=== PATIENT | female | born 1945 | race Caucasian/White ===

== ENCOUNTER 2022-05-11 19:08 | Inpatient (IN) | payer OTHER, MEDICAID ==
[~2022-05-11] VITALS: Ht 170.2 cm; Wt 112.9 kg
[2022-05-11 19:13] VITALS: BP_SYST 115; BP_SYST 170
[2022-05-11] MEDS ORDERED: NACL 0.9% 1,000 ML IV ONE ×2 (19:30→20:15)
[2022-05-11 19:50] LABS: BASOPHILS % (AUTO) 0.5 % (0.0-2.0); HEMATOCRIT 48.9 % (36-48); HEMOGLOBIN 15.9 g/dL (12.0-16.0); LYMPHOCYTES # (AUTO) 1.3 K/uL (1.0-5.5); LYMPHOCYTES % (AUTO) 19.5 % (20.5-51.5); MEAN CORPUSCULAR HEMOGLOBIN 29 pg (27-31); MEAN CORPUSCULAR HGB CONC 32 % (32-36); MEAN CORPUSCULAR VOLUME 91 fL (79.0-98.0); MONOCYTES # (AUTO) 1.4 K/uL (0.0-1.0); MONOCYTES % (AUTO) 21.7 % (1.7-9.3); NEUTROPHILS # (AUTO) 3.8 K/uL (1.8-7.7); NEUTROPHILS % (AUTO) 58.3 % (40.0-70.0); PLATELET COUNT (AUTO) 295 K/uL (130-430); RED CELL DISTRIBUTION WIDTH 16.4 % (9.0-15.0); WHITE BLOOD COUNT (AUTO) 6.4 K/uL (4.8-10.8)
[2022-05-11 20:12] LABS: ALANINE AMINOTRANSFERASE 13 U/L (12-78); ALBUMIN 2.7 g/dL (3.4-4.8); ANION GAP 29 (5-15); ASPARTATE AMINOTRANSFERASE 10 U/L (10-37); CALCIUM 9.1 mg/dL (8.4-11.0); CHLORIDE 88 mmol/L (98-107); CREATININE 1.56 mg/dL (0.55-1.30); TOTAL BILIRUBIN 0.6 mg/dL (0.0-1.0); UREA NITROGEN, BLOOD 10 mg/dL (8-21)
[2022-05-11 20:13] LABS: GLUCOSE 512 mg/dL (70-99)
[2022-05-11] MEDS ORDERED: INSULIN REGULAR, HUMAN 10 UNITS/0.1 ML, 3 ML VIAL IVP ONE (20:15)
[2022-05-11] MEDS ORDERED: INSULIN REGULAR, HUMAN 100 UNITS in NS 99 ML IV ONE ×4 (20:30→21:30)
[2022-05-11] MEDS ORDERED: PIPERACILLIN/TAZO 3.375 GM in NS 50 ML IV ONE (21:00)
[2022-05-11] MEDS ORDERED: SODIUM BICARBONATE 8.4% JECT 50 MEQ/50 ML SYRINGE IVP ONE (21:00)
[2022-05-11] MEDS ORDERED: PIPERACILLIN/TAZOBACTAM 3.375 GM/VIAL (ZOSYN) IV ONE (21:03)
[2022-05-11] MEDS ORDERED: NACL 0.9% 2,000 ML IV ONE (21:30)
[2022-05-11] MEDS ORDERED: SODIUM BICARBONATE 8.4% VIAL 50 MEQ/50 ML VIAL ONE (21:32)
[2022-05-11] MEDS ORDERED: INSULIN REGULAR, HUMAN 10 UNITS/0.1 ML, 3 ML VIAL ONE (22:12)
[2022-05-11] MEDS ORDERED: cefTRIAXone 1 GM in D5W 50 ML IV SCH (22:45)
[2022-05-11] MEDS ORDERED: FLUCONAZOLE 200 mg/ NS 100 ML IV SCH (23:00)
[2022-05-11] MEDS ORDERED: ONDANSETRON HCL 4 MG/2 ML VIAL IVP PRN (23:15)
[2022-05-12] VITALS (21 sets, daily range): BP systolic 105–190
[2022-05-12] MEDS ORDERED: CLON0.5T4 PO (00:07)
[2022-05-12] MEDS ORDERED: METF-379 PO (00:07)
[2022-05-12] MEDS ORDERED: SIMV-345 PO (00:07)
[2022-05-12] MEDS ORDERED: LEVO100T9 PO (00:07)
[2022-05-12 00:17] LABS: BILIRUBIN,URINE 2+ (NEGATIVE); BLOOD, URINE 2+ (NEGATIVE); CLARITY/URINE CLEAR (CLEAR); COLOR,URINE YELLOW (YELLOW); GLUCOSE,URINE 2+ (NEGATIVE); KETONES,URINE 3+ (NEGATIVE); LEUKOCYTE ESTERASE ,URINE TRACE (NEGATIVE); NITRITE, URINE NEGATIVE (NEGATIVE); PH,URINE 5.5 (5.0-8.0); PROTEIN URINE 2+ (NEGATIVE)
[2022-05-12] MEDS ORDERED: cefTRIAXone 1 GM VIAL ONE (00:34)
[2022-05-12] MEDS: NACL 0.9% 1,000 ML IV SCH ×4 (00:38→19:29)
[2022-05-12 00:43] LABS: BACTERIA,URINE FEW /HPF (None Seen); MUCUS,URINE None Seen /LPF (None Seen)
[2022-05-12 00:48] LABS: URINE SULFO SALICYLIC ACID TRACE (NEGATIVE)
[2022-05-12] MEDS ORDERED: clonazePAM 0.5 MG TABLET PO ONE (02:15)
[2022-05-12 07:30] LABS: BASOPHILS % (AUTO) 0.2 % (0.0-2.0); EOSINOPHILS % (AUTO) 0.2 % (0.0-4.0); HEMATOCRIT 46.3 % (36-48); HEMOGLOBIN 14.9 g/dL (12.0-16.0); LYMPHOCYTES # (AUTO) 1.5 K/uL (1.0-5.5); LYMPHOCYTES % (AUTO) 29.6 % (20.5-51.5); MEAN CORPUSCULAR HEMOGLOBIN 29 pg (27-31); MEAN CORPUSCULAR HGB CONC 32 % (32-36); MEAN CORPUSCULAR VOLUME 90 fL (79.0-98.0); MONOCYTES # (AUTO) 1.1 K/uL (0.0-1.0); MONOCYTES % (AUTO) 21.1 % (1.7-9.3); NEUTROPHILS # (AUTO) 2.5 K/uL (1.8-7.7); NEUTROPHILS % (AUTO) 48.9 % (40.0-70.0); PLATELET COUNT (AUTO) 123 K/uL (130-430); RED BLOOD CELL COUNT(AUTO) 5.18 MIL/uL (4.2-6.2); RED CELL DISTRIBUTION WIDTH 16.5 % (9.0-15.0); WHITE BLOOD COUNT (AUTO) 5.1 K/uL (4.8-10.8)
[2022-05-12 07:43] LABS: ALANINE AMINOTRANSFERASE 10 U/L (12-78); ALBUMIN 2.1 g/dL (3.4-4.8); ANION GAP 21 (5-15); ASPARTATE AMINOTRANSFERASE 14 U/L (10-37); CALCIUM 8.2 mg/dL (8.4-11.0); CHLORIDE 98 mmol/L (98-107); CREATININE 1.09 mg/dL (0.55-1.30); GLUCOSE 295 mg/dL (70-99); PHOSPHORUS 2.4 mg/dL (2.7-4.5); TOTAL BILIRUBIN 0.4 mg/dL (0.0-1.0); UREA NITROGEN, BLOOD 11 mg/dL (8-21)
[2022-05-12 08:08] LABS: ACETONE, SERUM SMALL (NEGATIVE)
[2022-05-12] MEDS: ACETAMINOPHEN 325 MG TABLET PO PRN (08:55)
[2022-05-12 09:13] LABS: INR 1.2 (0.8-1.2); PROTHROMBIN TIME 12.2 SECS (9.5-12.5)
[2022-05-12] MEDS ORDERED: CLOTRIMAZOLE 1% TOPICAL CREAM 15 GM TP ONE (10:30)
[2022-05-12 10:32] LABS: BILIRUBIN,URINE 2+ (NEGATIVE); BLOOD, URINE 1+ (NEGATIVE); COLOR,URINE YELLOW (YELLOW); GLUCOSE,URINE 2+ (NEGATIVE); KETONES,URINE 3+ (NEGATIVE); LEUKOCYTE ESTERASE ,URINE NEGATIVE (NEGATIVE); NITRITE, URINE NEGATIVE (NEGATIVE); PROTEIN URINE 2+ (NEGATIVE)
[2022-05-12 10:33] LABS: CLARITY/URINE SLIGHTLY HAZY (CLEAR)
[2022-05-12 10:41] LABS: BACTERIA,URINE FEW /HPF (None Seen); WBC,URINE 0-3 /HPF (0-3)
[2022-05-12] MEDS: CLOTRIMAZOLE 1% TOPICAL CREAM 15 GM TP SCH (12:59)
[2022-05-12] MEDS ORDERED: LOSARTAN POTASSIUM 25 MG TABLET PO ONE (15:45)
[2022-05-12 16:13] LABS: ANION GAP 13 (5-15); CALCIUM 8.2 mg/dL (8.4-11.0); CHLORIDE 100 mmol/L (98-107); CREATININE 1.12 mg/dL (0.55-1.30); GLUCOSE 355 mg/dL (70-99); UREA NITROGEN, BLOOD 14 mg/dL (8-21)
[2022-05-12] MEDS: AMPICILLIN SODIUM/SULBACTAM NA 3 GM in NS 100 ML IV SCH ×2 (18:31→23:58)
[2022-05-13] VITALS (19 sets, daily range): BP systolic 97–166
[2022-05-13] MEDS: NACL 0.9% 1,000 ML IV SCH ×2 (01:21→05:33)
[2022-05-13] MEDS: INSULIN REGULAR, HUMAN 100 UNITS in NS 99 ML IV SCH ×4 (03:13→07:51)
[2022-05-13] MEDS: AMPICILLIN SODIUM/SULBACTAM NA 3 GM in NS 100 ML IV SCH ×4 (05:33→23:58)
[2022-05-13 06:51] LABS: BASOPHILS % (AUTO) 0.3 % (0.0-2.0); EOSINOPHILS % (AUTO) 0.6 % (0.0-4.0); HEMATOCRIT 40.5 % (36-48); HEMOGLOBIN 13.5 g/dL (12.0-16.0); LYMPHOCYTES # (AUTO) 1.1 K/uL (1.0-5.5); LYMPHOCYTES % (AUTO) 21.6 % (20.5-51.5); MEAN CORPUSCULAR HEMOGLOBIN 29 pg (27-31); MEAN CORPUSCULAR HGB CONC 33 % (32-36); MEAN CORPUSCULAR VOLUME 88 fL (79.0-98.0); MONOCYTES # (AUTO) 0.9 K/uL (0.0-1.0); MONOCYTES % (AUTO) 18.1 % (1.7-9.3); NEUTROPHILS # (AUTO) 2.9 K/uL (1.8-7.7); NEUTROPHILS % (AUTO) 59.4 % (40.0-70.0); PLATELET COUNT (AUTO) 212 K/uL (130-430); RED BLOOD CELL COUNT(AUTO) 4.63 MIL/uL (4.2-6.2); RED CELL DISTRIBUTION WIDTH 16.4 % (9.0-15.0); WHITE BLOOD COUNT (AUTO) 4.9 K/uL (4.8-10.8)
[2022-05-13 07:53] LABS: ALANINE AMINOTRANSFERASE 12 U/L (12-78); ALBUMIN 1.9 g/dL (3.4-4.8); ASPARTATE AMINOTRANSFERASE 13 U/L (10-37); CREATININE 1.01 mg/dL (0.55-1.30); GLUCOSE 199 mg/dL (70-99); THYROID STIMULATING HORMONE 10.18 uIu/mL (0.34-4.82); TOTAL BILIRUBIN 0.3 mg/dL (0.0-1.0); UREA NITROGEN, BLOOD 11 mg/dL (8-21)
[2022-05-13] MEDS ORDERED: LOSARTAN POTASSIUM 25 MG TABLET PO SCH (09:00)
[2022-05-13 09:01] LABS: ANION GAP 9 (5-15); CHLORIDE 104 mmol/L (98-107)
[2022-05-13] MEDS: CLOTRIMAZOLE 1% TOPICAL CREAM 15 GM TP SCH ×2 (09:06→22:00)
[2022-05-13] MEDS ORDERED: POTASSIUM CHLORIDE 20 MEQ TAB.PRT.SR PO ONE (09:45)
[2022-05-13] MEDS ORDERED: NACL 0.9% 1,000 ML IV SCH (09:45)
[2022-05-13] MEDS ORDERED: INSULIN NPH 100 UNITS/ML 10 ML VIAL SUBCUT ONE (09:45)
[2022-05-13] MEDS ORDERED: PANTOPRAZOLE SODIUM 40 MG TAB PO ONE (10:00)
[2022-05-13] MEDS ORDERED: MAG-AL HYDROX/SIMETH 30 ML UDC PO ONE (10:00)
[2022-05-13] MEDS: ACETAMINOPHEN 325 MG TABLET PO PRN (11:06)
[2022-05-13] MEDS: INSULIN REGULAR, HUMAN 100 UNITS/ML, 3 ML VIAL (humuLIN R) SUBCUT PRN ×3 (11:11→18:13)
[2022-05-13] MEDS: MAG-AL HYDROX/SIMETH 30 ML UDC PO SCH ×3 (12:41→21:51)
[2022-05-13] MEDS ORDERED: MUPIROCIN 1 GM OIN.PF.APP NS SCH (15:30)
[2022-05-13] MEDS ORDERED: MUPIROCIN 2% TOPICAL OINTMENT 22 GM NS ONE (16:00)
[2022-05-13] MEDS ORDERED: cloNIDine HCL 0.1 MG TABLET PO PRN (18:30)
[2022-05-13] MEDS: LR 1,000 ML IV SCH (20:42)
[2022-05-13] MEDS ORDERED: INSULIN ASPART 100 UNITS/ML, 10 ML VIAL (NovoLOG) SUBCUT PRN (20:45)
[2022-05-13] MEDS: LOSARTAN POTASSIUM 25 MG TABLET PO SCH (21:58)
[2022-05-13] MEDS: ENOXAPARIN SODIUM 40 MG/0.4 ML SYRINGE SUBCUT SCH (21:58)
[2022-05-13] MEDS: MUPIROCIN 2% TOPICAL OINTMENT 22 GM NS SCH (22:00)
[2022-05-13] MEDS: POTASSIUM CHLORIDE 20 MEQ TAB.PRT.SR PO SCH (22:01)
[2022-05-13] MEDS: PANTOPRAZOLE SODIUM 40 MG TAB PO SCH (22:01)
[2022-05-13] MEDS: INSULIN GLARGINE 100 UNITS/ML, 10 ML VIAL SUBCUT SCH (22:09)
[2022-05-13] MEDS: INSULIN LISPRO SLIDING SCALE 100 UNITS/ML, 3 ML VIAL (humaLOG) SUBCUT PRN (22:40)
[2022-05-14 02:33] VITALS: BP_SYST 161
[2022-05-14] MEDS: INSULIN LISPRO SLIDING SCALE 100 UNITS/ML, 3 ML VIAL (humaLOG) SUBCUT PRN ×5 (03:57→21:55)
[2022-05-14] MEDS: LEVOTHYROXINE SODIUM 0.1 MG TABLET PO SCH (06:19)
[2022-05-14] MEDS: AMPICILLIN SODIUM/SULBACTAM NA 3 GM in NS 100 ML IV SCH ×2 (07:04→12:47)
[2022-05-14 07:33] LABS: BASOPHILS % (AUTO) 0.5 % (0.0-2.0); EOSINOPHILS # (AUTO) 0.1 K/uL (0.0-0.4); EOSINOPHILS % (AUTO) 1.3 % (0.0-4.0); HEMATOCRIT 40.8 % (36-48); HEMOGLOBIN 13.5 g/dL (12.0-16.0); LYMPHOCYTES # (AUTO) 1.3 K/uL (1.0-5.5); LYMPHOCYTES % (AUTO) 26.8 % (20.5-51.5); MEAN CORPUSCULAR HEMOGLOBIN 29 pg (27-31); MEAN CORPUSCULAR HGB CONC 33 % (32-36); MEAN CORPUSCULAR VOLUME 87 fL (79.0-98.0); MONOCYTES # (AUTO) 0.7 K/uL (0.0-1.0); MONOCYTES % (AUTO) 14.3 % (1.7-9.3); NEUTROPHILS # (AUTO) 2.9 K/uL (1.8-7.7); NEUTROPHILS % (AUTO) 57.1 % (40.0-70.0); PLATELET COUNT (AUTO) 193 K/uL (130-430); RED BLOOD CELL COUNT(AUTO) 4.68 MIL/uL (4.2-6.2); RED CELL DISTRIBUTION WIDTH 16.4 % (9.0-15.0)
[2022-05-14 08:00] VITALS: BP_SYST 147
[2022-05-14 08:16] LABS: ANION GAP 7 (5-15); CALCIUM 8.4 mg/dL (8.4-11.0); CHLORIDE 104 mmol/L (98-107); CREATININE 0.74 mg/dL (0.55-1.30); FREE T4 (FREE THYROXINE) 0.3 ng/dL (0.6-1.6); GLUCOSE 198 mg/dL (70-99); UREA NITROGEN, BLOOD 11 mg/dL (8-21)
[2022-05-14] MEDS: SIMVASTATIN 40 MG TABLET PO SCH (09:59)
[2022-05-14] MEDS: MAG-AL HYDROX/SIMETH 30 ML UDC PO SCH ×4 (09:59→21:28)
[2022-05-14] MEDS: PANTOPRAZOLE SODIUM 40 MG TAB PO SCH ×2 (10:00→21:28)
[2022-05-14] MEDS: POTASSIUM CHLORIDE 20 MEQ TAB.PRT.SR PO SCH ×2 (10:00→21:28)
[2022-05-14] MEDS: LOSARTAN POTASSIUM 25 MG TABLET PO SCH ×2 (10:01→21:27)
[2022-05-14] MEDS: MUPIROCIN 2% TOPICAL OINTMENT 22 GM NS SCH ×3 (10:05→21:27)
[2022-05-14] MEDS: CLOTRIMAZOLE 1% TOPICAL CREAM 15 GM TP SCH ×2 (10:05→21:28)
[2022-05-14] MEDS: INSULIN GLARGINE 100 UNITS/ML, 10 ML VIAL SUBCUT SCH ×2 (10:23→21:53)
[2022-05-14 14:06] LABS: T4 (THYROXINE) 1.6 ug/dL (4.5-12.0)
[2022-05-14] MEDS: LR 1,000 ML IV SCH ×2 (14:45→16:45)
[2022-05-14] MEDS ORDERED: VANCOMYCIN HCL 1,500 MG in NS 250 ML IV SCH (16:00)
[2022-05-14 16:45] VITALS: BP_SYST 151
[2022-05-14] MEDS ORDERED: FLUCONAZOLE 100 MG TABLET (DIFLUCAN) PO ONE (17:45)
[2022-05-14 21:07] VITALS: BP_SYST 145
[2022-05-14] MEDS: ENOXAPARIN SODIUM 40 MG/0.4 ML SYRINGE SUBCUT SCH (21:28)
[2022-05-15 00:36] VITALS: BP_SYST 147
[2022-05-15] MEDS: LR 1,000 ML IV SCH ×2 (01:46→10:24)
[2022-05-15 05:27] VITALS: BP_SYST 142
[2022-05-15] MEDS: LEVOTHYROXINE SODIUM 0.1 MG TABLET PO SCH (06:11)
[2022-05-15 07:23] LABS: BASOPHILS % (AUTO) 0.4 % (0.0-2.0); EOSINOPHILS # (AUTO) 0.1 K/uL (0.0-0.4); EOSINOPHILS % (AUTO) 1.7 % (0.0-4.0); HEMATOCRIT 42.3 % (36-48); HEMOGLOBIN 14.2 g/dL (12.0-16.0); LYMPHOCYTES # (AUTO) 1.5 K/uL (1.0-5.5); LYMPHOCYTES % (AUTO) 26.4 % (20.5-51.5); MEAN CORPUSCULAR HEMOGLOBIN 29 pg (27-31); MEAN CORPUSCULAR HGB CONC 34 % (32-36); MEAN CORPUSCULAR VOLUME 86 fL (79.0-98.0); MONOCYTES # (AUTO) 0.7 K/uL (0.0-1.0); MONOCYTES % (AUTO) 13.2 % (1.7-9.3); NEUTROPHILS # (AUTO) 3.2 K/uL (1.8-7.7); NEUTROPHILS % (AUTO) 58.3 % (40.0-70.0); PLATELET COUNT (AUTO) 180 K/uL (130-430); RED CELL DISTRIBUTION WIDTH 15.7 % (9.0-15.0); WHITE BLOOD COUNT (AUTO) 5.5 K/uL (4.8-10.8)
[2022-05-15 07:56] LABS: ANION GAP 3 (5-15); CALCIUM 8.2 mg/dL (8.4-11.0); CHLORIDE 99 mmol/L (98-107); GLUCOSE 225 mg/dL (70-99); UREA NITROGEN, BLOOD 7 mg/dL (8-21)
[2022-05-15 08:00] VITALS: BP_SYST 163
[2022-05-15] MEDS: MUPIROCIN 2% TOPICAL OINTMENT 22 GM NS SCH ×4 (09:00→22:00)
[2022-05-15] MEDS: FLUCONAZOLE 100 MG TABLET (DIFLUCAN) PO SCH (09:14)
[2022-05-15] MEDS: SIMVASTATIN 40 MG TABLET PO SCH (09:14)
[2022-05-15] MEDS: POTASSIUM CHLORIDE 20 MEQ TAB.PRT.SR PO SCH ×2 (09:14→22:00)
[2022-05-15] MEDS: PANTOPRAZOLE SODIUM 40 MG TAB PO SCH ×2 (09:15→21:58)
[2022-05-15] MEDS: MAG-AL HYDROX/SIMETH 30 ML UDC PO SCH ×4 (09:15→21:58)
[2022-05-15] MEDS: LOSARTAN POTASSIUM 25 MG TABLET PO SCH ×2 (09:16→21:59)
[2022-05-15] MEDS: CLOTRIMAZOLE 1% TOPICAL CREAM 15 GM TP SCH ×2 (09:19→22:00)
[2022-05-15] MEDS: INSULIN GLARGINE 100 UNITS/ML, 10 ML VIAL SUBCUT SCH ×2 (09:21→22:27)
[2022-05-15] MEDS: INSULIN LISPRO SLIDING SCALE 100 UNITS/ML, 3 ML VIAL (humaLOG) SUBCUT PRN ×3 (10:32→22:28)
[2022-05-15 11:55] VITALS: BP_SYST 142
[2022-05-15] MEDS: LINEZOLID 600 MG TABLET PO SCH (13:05)
[2022-05-15] MEDS ORDERED: BISACODYL 10 MG/SUPPOSITORY RC ONE (14:00)
[2022-05-15] MEDS ORDERED: BISACODYL 5 MG TABLET.DR (DULCOLAX) PO PRN (14:00)
[2022-05-15] MEDS ORDERED: clonazePAM 0.5 MG TABLET PO PRN (14:00)
[2022-05-15] MEDS ORDERED: DOCUSATE SODIUM 250 MG CAPSULE PO ONE (14:45)
[2022-05-15 18:36] VITALS: BP_SYST 142
[2022-05-15] MEDS: ENOXAPARIN SODIUM 40 MG/0.4 ML SYRINGE SUBCUT SCH (21:58)
[2022-05-15] MEDS: DOCUSATE SODIUM 250 MG CAPSULE PO SCH (21:59)
[2022-05-16] VITALS (7 sets, daily range): BP systolic 128–162
[2022-05-16] MEDS: LINEZOLID 600 MG TABLET PO SCH ×2 (01:50→16:28)
[2022-05-16] MEDS: LEVOTHYROXINE SODIUM 0.1 MG TABLET PO SCH (06:24)
[2022-05-16] MEDS: INSULIN LISPRO SLIDING SCALE 100 UNITS/ML, 3 ML VIAL (humaLOG) SUBCUT PRN ×2 (06:24→12:11)
[2022-05-16 07:14] LABS: ALANINE AMINOTRANSFERASE 10 U/L (12-78); ALBUMIN 2.1 g/dL (3.4-4.8); ASPARTATE AMINOTRANSFERASE 13 U/L (10-37); CALCIUM 8.1 mg/dL (8.4-11.0); CHLORIDE 92 mmol/L (98-107); CREATININE 0.62 mg/dL (0.55-1.30); GLUCOSE 235 mg/dL (70-99); TOTAL BILIRUBIN 0.4 mg/dL (0.0-1.0); UREA NITROGEN, BLOOD 5 mg/dL (8-21)
[2022-05-16 07:26] LABS: ANION GAP 4 (5-15)
[2022-05-16] MEDS ORDERED: POTASSIUM CHLORIDE 20 MEQ TAB.PRT.SR PO ONE (08:00)
[2022-05-16] MEDS: PANTOPRAZOLE SODIUM 40 MG TAB PO SCH (09:43)
[2022-05-16] MEDS: FLUCONAZOLE 100 MG TABLET (DIFLUCAN) PO SCH (09:43)
[2022-05-16] MEDS: LOSARTAN POTASSIUM 25 MG TABLET PO SCH (09:43)
[2022-05-16] MEDS: DOCUSATE SODIUM 250 MG CAPSULE PO SCH (09:43)
[2022-05-16] MEDS: MAG-AL HYDROX/SIMETH 30 ML UDC PO SCH ×2 (09:44→16:28)
[2022-05-16] MEDS: SIMVASTATIN 40 MG TABLET PO SCH (09:44)
[2022-05-16] MEDS: CLOTRIMAZOLE 1% TOPICAL CREAM 15 GM TP SCH (09:45)
[2022-05-16] MEDS: INSULIN GLARGINE 100 UNITS/ML, 10 ML VIAL SUBCUT SCH (09:57)
[2022-05-16] MEDS: MUPIROCIN 2% TOPICAL OINTMENT 22 GM NS SCH (09:58)
[2022-05-16] MEDS ORDERED: POTASSIUM CHLORIDE 40 MEQ, LIDOCAINE JECT 2% PF 100 MG 75 MG in NS 250 ML IV ONE (11:00)
[2022-05-16] MEDS ORDERED: BACTROBAN NS (14:37)
[2022-05-16] MEDS ORDERED: KLO.5 PO (14:37)
[2022-05-16] MEDS ORDERED: CLON0.1T PO (14:37)
[2022-05-16] MEDS ORDERED: DIF100 PO (14:37)
[2022-05-16] MEDS ORDERED: DOCU250C71 PO (14:37)
[2022-05-16] MEDS ORDERED: LINE600T12 PO (14:37)
[2022-05-16] MEDS ORDERED: INSU100V9 SUBCUT ×2 (14:37→14:46)
[2022-05-16] MEDS ORDERED: BLOO-1360 XX (14:37)
[2022-05-16] MEDS ORDERED: LOSA25TA3 PO (14:37)
[2022-05-16] MEDS ORDERED: BISA-140 PO (14:37)
[2022-05-16] MEDS ORDERED: ACET325T PO (14:37)
[2022-05-16] MEDS ORDERED: Potassium Chloride PO (14:37)
[2022-05-16] MEDS ORDERED: Clotrimazole TP (14:37)
[2022-05-16] MEDS ORDERED: POTASSIUM CHLORIDE 20 MEQ TAB.PRT.SR PO SCH (15:00)
[2022-05-16 16:54] LABS: ANION GAP 5 (5-15); CALCIUM 8.2 mg/dL (8.4-11.0); CHLORIDE 94 mmol/L (98-107); CREATININE 0.74 mg/dL (0.55-1.30); GLUCOSE 219 mg/dL (70-99); UREA NITROGEN, BLOOD 7 mg/dL (8-21)
[2022-05-16] MEDS ORDERED: INSULIN GLARGINE 100 UNITS/ML, 10 ML VIAL SUBCUT SCH (21:00)
[2022-05-17] MEDS ORDERED: POTASSIUM CHLORIDE 20 MEQ TAB.PRT.SR PO SCH (09:00)
== END 2022-05-16 22:38 | DRG 637 ==
LOC: SED 19:08 → SIC 21:16 → SMU 05-13 21:04 → STU 05-13 23:35
PROVIDERS: ADMIT Internal Medicine; ATTEND Internal Medicine
DX: E11.10 Type 2 diabetes mellitus with ketoacidosis without coma (principal); E43 Unspecified severe protein-calorie malnutrition; E87.1 Hypo-osmolality and hyponatremia; I10 Essential (primary) hypertension; E03.9 Hypothyroidism, unspecified; E66.9 Obesity, unspecified; E87.6 Hypokalemia; Z20.822 Contact with and (suspected) exposure to COVID-19; J45.909 Unspecified asthma, uncomplicated; L01.00 Impetigo, unspecified; Z68.39 Body mass index [BMI] 39.0-39.9, adult; Z79.4 Long term (current) use of insulin
CPT/HCPCS: 36415; 36600; 71045; 80048; 80053; 81000; 82009; 82306; 82803-TC; 82962; 83037; 83605; 83735; 83880; 84100; 84436; 84439; 84443; 84484; 85025; 85610-TC; 85730-TC; 86038; 86060; 86592; 87040; 87070-TC; 87081; 87086; 87186-TC; 87210-TC; 93005; 97110-GP; 97116-GP; 97163-GP; 97530-GP; 99285; G0378; J0295; J0696; J1450; J1650; J1815; J2405; J2543; J3370; J3480; J7050; J7060